=== PATIENT | female | born 1995 | race Hispanic/Latino ===

== ENCOUNTER 2020-04-13 13:22 | Emergency (ER) | payer SELFPAY ==
[2020-04-13] MEDS ORDERED: Lidocaine 1% (PF) 30 ML VIAL ONE (15:34)
== END 2020-04-13 16:31 | disposition home or self-care (01) ==
LOC: ERS 13:22
DX: L60.0 Ingrowing nail (principal); F17.210 Nicotine dependence, cigarettes, uncomplicated
CPT/HCPCS: 11750; 90471; J2001